=== PATIENT | female | born 1970 | race Caucasian/White ===

== ENCOUNTER → 2024-02-19 06:18 | Day surgery (SDC) | payer OTHER, SELFPAY | LOC: GI 06:18 | PROVIDERS: ATTENDING PHYSICIAN Internal Medicine Gastroenterology | DX: Z12.11 Encounter for screening for malignant neoplasm of colon (principal); Z86.0101 Personal history of adenomatous and serrated colon polyps; Q43.8 Other specified congenital malformations of intestine; D12.3 Benign neoplasm of transverse colon; D12.7 Benign neoplasm of rectosigmoid junction; D12.8 Benign neoplasm of rectum | CPT/HCPCS: 45385; 45381; 88305 ==